=== PATIENT | female | born 1950 | race Caucasian/White ===

== ENCOUNTER → 2024-03-03 14:42 | Outpatient (REF) | payer MEDICARE, OTHER, SELFPAY | LOC: DHCBC HW 14:42 | PROVIDERS: ATTENDING PHYSICIAN Internal Medicine Cardiovascular Disease; FAMILY PHYSICIAN Family Medicine | DX: R01.1 Cardiac murmur, unspecified (principal) | CPT/HCPCS: 93306 ==

== ENCOUNTER → 2024-05-02 12:19 | Outpatient (REF) | payer MEDICARE, OTHER, SELFPAY | LOC: HWWDC 12:19 | PROVIDERS: ATTENDING PHYSICIAN Family Medicine | DX: Z12.31 Encounter for screening mammogram for malignant neoplasm of breast (principal) | CPT/HCPCS: 77063; 77067 ==

== ENCOUNTER → 2024-05-17 07:50 | Outpatient (REF) | payer MEDICARE, OTHER, SELFPAY | LOC: HWRAD 07:50 | PROVIDERS: ATTENDING PHYSICIAN Internal Medicine Endocrinology, Diabetes & Metabolism; FAMILY PHYSICIAN Family Medicine | DX: E04.2 Nontoxic multinodular goiter (principal) | CPT/HCPCS: 76536 ==

== ENCOUNTER → 2024-05-31 09:24 | Outpatient (REF) | payer MEDICARE, OTHER, SELFPAY | LOC: RAD 09:24 | PROVIDERS: ATTENDING PHYSICIAN Surgery Vascular Surgery; FAMILY PHYSICIAN Family Medicine | DX: I65.23 Occlusion and stenosis of bilateral carotid arteries (principal) | CPT/HCPCS: 93880 ==

== ENCOUNTER → 2024-06-13 12:02 | Outpatient (REF) | payer MEDICARE, OTHER, SELFPAY ==
[2024-06-13 15:33] LABS: Blood Urea Nitrogen 16 mg/dl (7-17); Calcium 10.2 mg/dl (8.4-10.2); Carbon Dioxide 32 mmol/L (22-30); Chloride 102 mmol/L (98-107); Glucose 123 mg/dl (70-99); Potassium 4.6 mmol/L (3.5-5.1); Sodium 138 mmol/L (135-145); eGFR > 60.00
== END ==
LOC: HWLAB 12:02
PROVIDERS: ATTENDING PHYSICIAN Surgery Vascular Surgery; FAMILY PHYSICIAN Family Medicine
DX: I65.23 Occlusion and stenosis of bilateral carotid arteries (principal)
CPT/HCPCS: 36415; 80048

== ENCOUNTER → 2024-06-20 08:33 | Outpatient (REF) | payer MEDICARE, OTHER, SELFPAY | LOC: HWRAD 08:33 | PROVIDERS: ATTENDING PHYSICIAN Surgery Vascular Surgery; FAMILY PHYSICIAN Family Medicine | DX: I65.23 Occlusion and stenosis of bilateral carotid arteries (principal) | CPT/HCPCS: 70496; 70498; Q9967 ==

== ENCOUNTER 2024-06-29 06:05 | Inpatient (IN) | payer MEDICARE, OTHER, SELFPAY ==
--- NOTE | 2024-06-28 15:05 | PTCARENOTE ---
Patients last dose of Ozempic 06/23- Dr. Del Toro notified- ok to proceed with procedure
[2024-06-29] VITALS (14 sets, daily range): BP systolic 94–145; BP diastolic 48–93; BMI 34.8
[2024-06-29 07:02] LABS: Hematocrit 40.8 % (37.0-47.0); Hemoglobin 13.9 g/dL (12.0-16.0); Mean Corp Hgb Conc. 34.1 g/dL (33.0-37.0); Mean Corpuscular Hgb 27.8 pg (27.0-31.0); Mean Corpuscular Volume 81.6 fL (81.0-99.0); Mean Platelet Volume 9.5 fL (7.4-10.4); Platelet Count 377 10^3/uL (130-400); Red Cell Dist. Width 15.1 % (11.5-14.5); White Blood Cell Count 13.8 10^3/uL (4.8-10.8)
[2024-06-29] MEDS: PERIDEX 0.12% ORAL RINSE 15 ML PO (07:02)
[2024-06-29] MEDS: BACTROBAN NASAL 1 GRAM NASAL (07:02)
--- NOTE | 2024-06-29 07:03 | W.SUR.PREOP ---
Pre-Operative Surgical Note
-
I have examined this patient prior to the performance of the scheduled procedure.
The patient's condition is unchanged from the time of the current History and
Physical and the patient is able to undergo the scheduled procedure.
[2024-06-29 07:09] LABS: Blood Urea Nitrogen 20 mg/dl (7-17); Calcium 10.2 mg/dl (8.4-10.2); Carbon Dioxide 26 mmol/L (22-30); Chloride 103 mmol/L (98-107); Estimated Creatinine Clearance 61 ml/min; Glucose 180 mg/dl (70-99); Potassium 4.5 mmol/L (3.5-5.1); Sodium 138 mmol/L (135-145); eGFR > 60.00
[2024-06-29 07:12] LABS: INR 0.98
[2024-06-29 07:17] LABS: Glucose - Point of Care 153 mg/dl (70-99)
[2024-06-29 07:28] LABS: APTT 21.5 Sec (23.4-35.0)
--- NOTE | 2024-06-29 09:45 | OR.RPT ---
Operative Report
Operative Report
PROCEDURE DATE: 06/29/2024
Preoperative diagnosis: Symptomatic critical left carotid artery stenosis.
Postoperative diagnosis: Same
Procedure: Left carotid endarterectomy with bovine pericardial patch angioplasty and intraoperative EEG/SSEP monitoring. Placement of intraoperative temporary shunt.
Surgeon: Naseem
Adding Machine Mechanic: SYL Carrillo required for all aspects of procedure including assistance with traction/countertraction, following a suture line, assistance with closure.
Complications: None
Anesthesia: General
Indications for procedure:
Symptomatic left carotid artery critical stenosis (2 episodes of right arm weakness). Risk/benefits/alternatives of revascularization all fully discussed. Patient understood and wished to proceed.
Description of procedure:
Patient was identified brought to the operating room placed on the table in supine position. After the adequate administration of anesthesia and perioperative antibiotics she was prepped and draped in the standard surgical fashion. A standard
preoperative timeout was undertaken and everybody was in agreement the plan. A standard longitudinal incision was made in the left neck that was carried through the skin subcutaneous tissue. She had an enlarged thyroid (known history of
multinodular goiter) and care was taken to make the incision slightly cephalad to that region. Using the electrocautery dissection was carried through the platysma muscle layer and then alongside the anterior medial border of the
sternocleidomastoid muscle. Then using a combination of sharp dissection with the Metzenbaum scissors and electrocautery I dissected along the anterior medial border of the internal jugular vein. The common facial vein branch was ligated between
silk ties and then divided. I then deepened my retraction. The common carotid artery was identified and carefully dissected away from the surrounding structures taking great care to avoid any injury to the structures. A vessel loop was passed
around it which was double looped, but not yet tightened. Note the vagus nerve was clearly visualized and protected from harm's way. I then continued my dissection up the common carotid artery to the bulb staying only on the anterior surface of
the carotid artery. Then I carried the dissection up to the internal carotid artery and then to the distal internal carotid artery. I identified where it was soft and carefully circumferentially dissected the internal carotid artery with minimal
mobilization and passed a vessel loop around it. Note the hypoglossal nerve was not visualized in the field here and felt to be further cephalad. The patient was given an appropriate dose of heparin 9000 units. Next I dissected the anterior
surface of the external carotid artery and superior thyroid branches. These were then carefully circumferentially dissected with minimal mobilization and vessel loops passed around these which were double looped but not yet tightened. After 3
minutes of heparin circulation time and confirmation of optimization of the blood pressure with my anesthesiology colleagues, I clamped the distal internal carotid artery where it was soft. There was no immediate EEG or SSEP changes. After 1
minute of test clamp time there was no changes noted. Therefore at this point, the vessel loops on the external carotid artery and superior thyroid branches were tightened and the common carotid artery was clamped where it was soft proximally. An
arteriotomy was made on the common carotid artery with an 11 blade and extended using a Clark scissor. At this point while trying to extend the arteriotomy, SSEP changes were initially noted. I therefore quickly prepared a shunt. I quickly
extended the arteriotomy onto the mid to distal internal carotid artery. There was significant calcified and mixed plaque resulting in severe stenosis, challenging the ease of extending the arteriotomy. Once I got to clean endpoints proximally on
the common carotid artery and distally on the internal carotid artery in terms of my arteriotomy, I then quickly placed the Arab shunt into the internal carotid artery distally and placed a shunt clamp to hold in place. I allowed to backbleed and
then passed it down into the common carotid artery where a double looped vessel loop was tightened to hold the shunt in place. Of note, during this period in addition to the SSEPs, the EEGs began to dampen as well. However, immediately upon shunt
placement they all began to recover and then relatively quickly resumed to baseline.. A [place] was then used to endarterectomized the plaque. An endarterectomy plane was created, and the plaque was then endarterectomized. Distally I feathered the
plaque out to a nice clean endpoint in the distal internal carotid artery. Next I endarterectomized the intima back to normal intima in the common carotid artery, and the intima was cut flush there. I then grasped the plaque and everted plaque out
of the origin of the external carotid artery. The plaque was then sent off for specimen. The origin of the external carotid artery was carefully visualized and any fine debris were removed with fine forceps. Proximal and distal endpoints were
then carefully inspected. Any fine debris was removed with fine forceps, and the intima was noted to be nicely adherent proximally distally. Next any fine debris were removed throughout the endarterectomy bed with fine forceps. A couple
interrupted 7-0 Prolene tacking sutures were placed to tack the posterior intima at the distal endpoint. I then flushed heparinized saline. I was very satisfied. Then, I used a bovine pericardial patch to sew a patch angioplasty with a running
6-0 Prolene suture. Prior to completing and tying down my suture line, I removed the shunt, allowing the internal and common carotid arteries to backbleed and then reclamping them. I flushed heparinized saline. I quickly completed and tied down
my suture line now. We then restored flow in the common carotid and external carotid arteries. Finally, we released flow in the internal carotid artery. There was excellent pulsatile flow in all 3 vessels. There was an excellent Doppler signal
in the internal carotid artery distal to the patch with a good normal low resistance Doppler signal. There was a good Doppler signal in the external carotid artery as well. A couple 6-0 Prolene [id number] sutures were placed along two
bleeding points along the suture line. Protamine was given to reverse the heparin. Hemostasis was completely achieved. We then irrigated and confirmed full hemostasis. We then closed in layers with 2-0 Vicryl layer to reapproximate the
sternocleidomastoid muscle, followed by 3-0 Vicryl platysma muscle running layer, followed by 4 Monocryl subcuticular stitch. Dermabond was applied. The patient tolerated procedure well. She awoke moving all four extremities to command with tongue
in the midline.
[2024-06-29 10:32] LABS: Blood Urea Nitrogen 17 mg/dl (7-17); Calcium 8.7 mg/dl (8.4-10.2); Carbon Dioxide 24 mmol/L (22-30); Chloride 107 mmol/L (98-107); Estimated Creatinine Clearance 68 ml/min; Glucose 156 mg/dl (70-99); Potassium 4.4 mmol/L (3.5-5.1); Sodium 136 mmol/L (135-145); eGFR > 60.00
[2024-06-29] MEDS: NSS 1000 IV (10:35)
[2024-06-29 10:44] LABS: PT 14.3 Sec (11.4-14.6)
[2024-06-29 10:45] LABS: APTT 29.2 Sec (23.4-35.0)
[2024-06-29 11:50] LABS: Hematocrit 34.8 % (37.0-47.0); Hemoglobin 11.8 g/dL (12.0-16.0); Mean Corp Hgb Conc. 33.9 g/dL (33.0-37.0); Mean Corpuscular Hgb 27.9 pg (27.0-31.0); Mean Corpuscular Volume 82.3 fL (81.0-99.0); Mean Platelet Volume 9.8 fL (7.4-10.4); Platelet Count 289 10^3/uL (130-400); Red Blood Cell Count 4.23 10^6/uL (4.20-5.40); White Blood Cell Count 15.1 10^3/uL (4.8-10.8)
--- NOTE | 2024-06-29 11:55 | CON.INTV ---
Consultation
Consultation Request
Date/Time Consultation Requested: 06/29/24
Date/Time Consultation Performed: 06/29/24
Performing Provider: Alber
Reason for Consultation: ICU
Medical History
-
History of Present Illness:
Patient is a 73 year old F with history of HTN, HLD prior R sided carotid intervention presenting for elective L sided carotid CEA. Outpatient records reviewed with 70-80% stenosis and some accompanying symptoms of UE weakness. She underwent
procedure and is transferred postop to ICU for further management.
Past Medical History
Past Medical History: Other (see list below)
Social History
Tobacco: Non-smoker
Alcohol: None
Drug: None
Family History
Family History: Reviewed & Not Pertinent
Allergies / Home Medications
Allergies
Allergy/AdvReac Type Severity Reaction Status Date / Time
lisinopril Allergy cough Verified 06/28/24 09:00
Home Medications
�Medication �Instructions �Recorded �Confirmed �Last Taken �Type
metformin 850 mg tablet 850 mg PO BID Diabetes 08/26/13 06/29/24 06/28/24 19:00 History
multivitamin 1 tab PO DAILY Supplement 07/22/22 06/29/24 06/28/24 08:00 History
diphenhydramine 25 2 tab PO HS PRN sleep 07/30/22 06/29/24 06/28/24 22:00 History
mg-acetaminophen 500 mg tablet
losartan 100 mg tablet 100 mg PO DAILY Blood Pressure 07/30/22 06/29/24 06/28/24 08:00 History
aspirin 81 mg tablet,delayed 81 mg PO DAILY Blood Clot 06/28/24 06/29/24 06/29/24 05:00 History
release Prevention/Tx
atorvastatin 80 mg tablet 80 mg PO HS High Cholesterol 06/28/24 06/29/24 06/28/24 19:00 History
calcium 1 cap PO DAILY Supplement 06/28/24 06/29/24 06/28/24 08:00 History
carvedilol 12.5 mg tablet 12.5 mg PO BID Blood Pressure 06/28/24 06/29/24 06/28/24 19:00 History
cholecalciferol (vitamin D3) 25 25 mcg PO DAILY Supplement 06/28/24 06/29/24 06/28/24 19:00 History
mcg (1,000 unit) tablet (Vitamin
D3)
icosapent ethyl 1 gram capsule 1 g PO BID High Cholesterol 06/28/24 06/29/24 06/28/24 19:00 History
(Vascepa)
nifedipine 90 mg tablet,extended 90 mg PO DAILY Blood Pressure 06/28/24 06/29/24 06/29/24 05:00 History
release 24 hr
semaglutide 1 mg/dose (4 mg/3 mL) 1 mg SC QWEEK Diabetes 06/28/24 06/28/24 06/23/24 History
subcutaneous pen injector (Ozempic)
Review of Systems
-
History Source: Patient
All other systems: Negative unless noted
Vitals / Labs / Diagnostic Testing
Vital Signs
Temp Pulse Resp BP Pulse Ox
97.5 F 80 14 123/55 97
06/29/24 10:45 06/29/24 10:45 06/29/24 10:45 06/29/24 10:45 06/29/24 10:45
Lab Data
06/29/24 10:02
06/29/24 10:02
Laboratory Results
06/29/24 06/29/24
06:36 10:02
PT 13.0 14.3
INR 0.98 1.10
APTT 21.5 L 29.2
Diagnostic Testing:
Physical Exam
-
HEENT: Normocephalic, Anicteric and Moist Mucous Membranes
Cardiovascular: S1/S2 and Regular Rhythm
Respiratory: Clear and Non-Labored Respirations
GI: Soft, Non Distended and Non Tender
Neurology: Awake, Alert, Oriented, AO x 3 and No Motor Deficits
Skin: Warm, Dry and Good Color
General: Comfortable and Other (NAD)
Assessment
-
Patient is a 73 year old F with history of HTN, HLD prior R sided carotid intervention presenting for elective L sided carotid CEA. Outpatient records reviewed with 70-80% stenosis and some accompanying symptoms of UE weakness. She underwent
procedure and is transferred postop to ICU for further management.
Symptomatic critical left carotid artery stenosis s/p Left carotid endarterectomy with bovine pericardial patch angioplasty 06/29/24
Mild leukocytosis, postop
Mild anemia, postop
Hyperglycemia
Conditions present CONCRETE PAVING MACHINE OPERATOR
Status post TCAR, remote history of right CEA 07/30/22
Hypertension
Hyperlipidemia
Diabetes mellitus
Peripheral vascular disease
Obesity
Plan
Patient is s/p L CEA by vascular surgery service, POD #0
Continue observation following procedure
Follow neurovascular checks per protocol
ASA, betablocker and statin on board
Follow BP monitoring and parameters as set by primary team
Cardiac history noted--HTN, PVD
Monitor on telemetry
Pain control per protocol
RASS goal 0
No prior history of pulmonary disease, nonsmoker
Prior CXR reviewed indicating no acute disease
No prior PFTs for review, denies active complaints
Stable on RA
Encouraged IS
Diet advancement per protocol
Aspiration precautions
GI prophylaxis if indicated for stress ulcer prevention in the critically ill
Creat at baseline, follow UO
Critical I/Os
Void trials
Replete electrolytes as needed
No signs/symptoms suspicious for infectious etiology at this time
Will observe off antibiotics for now
Follow temperatures/CBC
Hb and platelets postoperatively stable
DVT prophylaxis recommended if not contraindicated based on procedural history -- heparin SQ and mechanical SCDs
Encouraged OOB/PT/OT/ambulation once cleared by surgical team
We will follow
Diagnostic Data
Chest X-Ray: 07/27/22- There is no acute cardiopulmonary process. No significant interval change.
CT Scan: H&N 06/20/24- Severe calcific atherosclerotic disease involving the left carotid bulb with greater than 70% narrowing at this level. Atherosclerotic plaque extends into the proximal left ICA with at least 50% intraluminal narrowing involving
a short segment of the proximal ICA. The remainder of the cervical ICA demonstrates no significant atherosclerotic disease and is patent. Patent right carotid stent without evidence of in-stent stenosis. Nonstented segment of the right ICA is patent
without significant atherosclerotic disease. Mild atherosclerotic disease of the intracranial ICAs without significant narrowing. Patent intracranial arteries.
No acute intracranial abnormality. Age-appropriate volume loss. Sequela of chronic small vessel disease. 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
Echo: 03/03/24- Normal left ventricular chamber size with mild concentric remodeling and hyperdynamic left ventricular systolic function. Left ventricular ejection fraction is 70-75%. Stage I diastolic dysfunction suggestive of abnormal relaxation.
Normal right ventricular size and function. Normal atria. No significant valve abnormalities are observed. No evidence of pulmonary hypertension. No significant change since the prior study of 12/29/2021.
PFT's:
Reports and relevant images were personally reviewed.
-----
Critical Care time 52 mins -- The patient is admitted for acute critical illness for the treatment of vital organ failure and/or prevention of further life-threatening conditions. Total care includes time spent in review of history, physical exam,
medications, hemodynamic/ventilator parameters, laboratory data, imaging and discussion with house staff, pharmacy, respiratory therapy, baggage agent, and nursing.
[2024-06-29 11:57] LABS: Glucose - Point of Care 168 mg/dl (70-99)
[2024-06-29] MEDS: NOVOLOG FLEXPEN-LOW RESISTANCE 1 UNITS SC (12:40)
--- NOTE | 2024-06-29 12:57 | PTCARENOTE ---
Pt arrived from PACU approx 1100 to ICU, s/p L CEA. Complete assessment done and documented. Pt oriented x3, JOHNSON bilat, equal strength of exts. +PERRL. Incision with surgi glu intact on L neck. Ice pack to neck inc. R rad js zero'd and + cuff
ruel noted. Pt afeb. HR SR, BP 118/55. NS @ 80 ml/hr infusing. Pt received on 2l nc, o2 sat=97%, lobes clear, diminished at bases bilat. Pt decreased to R/A now, tolerating well, O2 sat=92%. Pt tested with swallowing water sips, and tolerated well,
no coughing noted. Pt expressed that she is being seen by Dr Lopez for thyroid issues. Diet ordered by Jerson Carrillo. Pt's and son to room and updated.
[2024-06-29] MEDS: NOVOLOG FLEXPEN-LOW RESISTANCE 2 UNITS SC (17:55)
[2024-06-29 18:03] LABS: Glucose - Point of Care 245 mg/dl (70-99)
[2024-06-29] MEDS: COREG 12.5 MG PO (20:52)
[2024-06-29] MEDS: HEPARIN 5000 UNITS SC (20:52)
[2024-06-29] MEDS: LIPITOR 80 MG PO (21:48)
--- NOTE | 2024-06-29 22:03 | PTCARENOTE ---
Received pt handoff at bedside. AOx3, JOHNSON bilaterally, equal strength in all extremities. + PERRLA. NSR w/ 1st degree HB, + pulses. Right radial Ying zero'd and correlated with cuff. 95% on RA clear but diminished at bases. Hypoactive bowel sounds
in all 4 quadrants. Pt using bedpan, urine clear yellow. Dermabond on left neck incision intact. Safe environment maintained.
[2024-06-29 22:11] LABS: Glucose - Point of Care 176 mg/dl (70-99)
[2024-06-29] MEDS: NOVOLOG FLEXPEN 1 UNITS SC (22:16)
--- NOTE | 2024-06-29 23:48 | PTCARENOTE ---
No changes in pt's status, neuro checks remaining the same, continuing to monitor see worklist.
[2024-06-30] VITALS (7 sets, daily range): BP systolic 138–185; BP diastolic 54–77; BMI 35.5
[2024-06-30 03:37] LABS: Hematocrit 34.9 % (37.0-47.0); Hemoglobin 11.9 g/dL (12.0-16.0); Mean Corp Hgb Conc. 34.1 g/dL (33.0-37.0); Mean Corpuscular Hgb 27.5 pg (27.0-31.0); Mean Corpuscular Volume 80.8 fL (81.0-99.0); Mean Platelet Volume 9.6 fL (7.4-10.4); Platelet Count 288 10^3/uL (130-400); Red Blood Cell Count 4.32 10^6/uL (4.20-5.40); Red Cell Dist. Width 15.1 % (11.5-14.5); White Blood Cell Count 14.7 10^3/uL (4.8-10.8)
[2024-06-30 03:46] LABS: APTT 26.2 Sec (23.4-35.0); INR 1.02; PT 13.4 Sec (11.4-14.6)
[2024-06-30 04:01] LABS: Blood Urea Nitrogen 16 mg/dl (7-17); Calcium 9.6 mg/dl (8.4-10.2); Carbon Dioxide 25 mmol/L (22-30); Chloride 109 mmol/L (98-107); Estimated Creatinine Clearance 78 ml/min; Glucose 145 mg/dl (70-99); Magnesium 1.9 mg/dl (1.6-2.3); Potassium 4.3 mmol/L (3.5-5.1); Sodium 139 mmol/L (135-145); eGFR > 60.00
[2024-06-30] MEDS: NITROGLYCERIN PREMIX 250 IV (04:07)
[2024-06-30 04:40] LABS: Hepatitis C Antibody Negative (Negative)
--- NOTE | 2024-06-30 07:22 | W.PN.VS ---
Addendum entered and electronically signed by Enoc Gusman MD 06/30/24 08:05:
Seen and examined this morning with SYL Carrillo. Agree with findings as noted below. No significant complaints. Left neck incision is clean dry and intact. No hematoma. Neurologically moves all extremities well. Tongue midline. Plan/as discussed
and noted below.
Original Note:
Today's Communication / Plan
-
Patient seen and examined at bedside with Dr. Enoc Gusman, below plan reviewed with attending
Assessment/Plan
-
Assessment: 73-year-old female POD #1 left carotid endarterectomy
Plan:
Will give home medication p.o. antihypertensives and wean nitro infusion, can discontinue arterial line once nitro drip discontinued
OOB to chair with progression to ambulation as tolerated
Continue diet
Continue antiplatelet medication of aspirin 81 mg p.o. daily and statin therapy
Likely discharge later today, follow-up placed in discharge instructions
Subjective Data
-
Date of Service: June 30, 2024
Patient seen and examined bedside, offers no complaints. Denies headache, unilateral weakness, vision changes, dysarthria, dysphagia, aphasia, nausea, vomiting, fever, and chills. Reports well-managed postoperative pain. Reports eagerness for
discharge to home when deemed stable.
Objective Data
-
Vital Signs
Temp Pulse Resp BP Pulse Ox
98.5 F 85 13 185/77 90
06/30/24 00:00 06/30/24 05:15 06/30/24 05:15 06/30/24 04:00 06/30/24 05:15
Intake and Output
06/29/24 06/30/24 07/01/24
06:59 06:59 06:59
Intake Total 1136.5 / 1136.5
Output Total 600 / 600
Balance 536.5 / 536.5
Intake:
Oral fluids 345 / 345
IV fluids (Total) 791.5 / 791.5
Nitro 1.5 / 1.5
Normosal 150 / 150
Nss 1,000 ml @ 80 mls/hr IV . 640 / 640
[id number] [facility] Rx#:[id number]
Output:
Urine, Voided 600 / 600
Other:
Number of approximated SMALL 1
amounts of urine
Number of approximated MODERATE 1
amounts of urine
Lab Results
06/30/24 03:26
06/30/24 03:26
Calcium 9.6 mg/dl (8.4-10.2) 06/30/24 03:26
Magnesium 1.9 mg/dl (1.6-2.3) 06/30/24 03:26
Physical Exam
-
General: No apparent distress, resting comfortably in bed
Neuro: AAOx3, moves BL UE and LE to command and spontaneously
HEENT: Normocephalic atraumatic, tongue midline, face symmetrical
Cardiac: No JVD, RRR
Respiratory: No dyspnea on room air
GI: Non-distended
Skin: Left neck surgical incision CDI, no hematoma
--- NOTE | 2024-06-30 07:24 | W.PN.INTV ---
Addendum entered and electronically signed by Kamila Campo, DO 06/30/24 13:45:
Mild postop anemia, ONLY
Original Note:
Today's Communication / Plan
Recommendations
Doing well, tolerating meals
Sitting in chair, no new complaints
Discharge planning per team
Assessment
-
Patient is a 73 year old F with history of HTN, HLD prior R sided carotid intervention presenting for elective L sided carotid CEA. Outpatient records reviewed with 70-80% stenosis and some accompanying symptoms of UE weakness. She underwent
procedure and is transferred postop to ICU for further management.
Symptomatic critical left carotid artery stenosis s/p Left carotid endarterectomy with bovine pericardial patch angioplasty 06/29/24
Mild leukocytosis, postop
Mild anemia, postop
Hyperglycemia
Conditions present ANIMAL CARE SUPERVISOR
Status post TCAR, remote history of right CEA 07/30/22
Hypertension
Hyperlipidemia
Diabetes mellitus
Peripheral vascular disease
Obesity
Plan
Patient is s/p L CEA by vascular surgery service, POD #1
Continue observation following procedure
Follow neurovascular checks per protocol
ASA, betablocker and statin on board
Follow BP monitoring and parameters as set by primary team
Cardiac history noted--HTN, PVD
Monitor on telemetry
Pain control per protocol
RASS goal 0
No prior history of pulmonary disease, nonsmoker
Prior CXR reviewed indicating no acute disease
No prior PFTs for review, denies active complaints
Stable on RA
Encouraged IS
Diet advancement per protocol
Aspiration precautions
GI prophylaxis if indicated for stress ulcer prevention in the critically ill
Creat at baseline, follow UO
Critical I/Os
Void trials
Replete electrolytes as needed
No signs/symptoms suspicious for infectious etiology at this time
Will observe off antibiotics for now
Follow temperatures/CBC
Hb and platelets postoperatively stable
DVT prophylaxis recommended if not contraindicated based on procedural history -- heparin SQ and mechanical SCDs
Encouraged OOB/PT/OT/ambulation once cleared by surgical team
Discharge planning per team
Diagnostic Data
Chest X-Ray: 07/27/22- There is no acute cardiopulmonary process. No significant interval change.
CT Scan: H&N 06/20/24- Severe calcific atherosclerotic disease involving the left carotid bulb with greater than 70% narrowing at this level. Atherosclerotic plaque extends into the proximal left ICA with at least 50% intraluminal narrowing involving
a short segment of the proximal ICA. The remainder of the cervical ICA demonstrates no significant atherosclerotic disease and is patent. Patent right carotid stent without evidence of in-stent stenosis. Nonstented segment of the right ICA is patent
without significant atherosclerotic disease. Mild atherosclerotic disease of the intracranial ICAs without significant narrowing. Patent intracranial arteries.
No acute intracranial abnormality. Age-appropriate volume loss. Sequela of chronic small vessel disease. 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
Echo: 03/03/24- Normal left ventricular chamber size with mild concentric remodeling and hyperdynamic left ventricular systolic function. Left ventricular ejection fraction is 70-75%. Stage I diastolic dysfunction suggestive of abnormal relaxation.
Normal right ventricular size and function. Normal atria. No significant valve abnormalities are observed. No evidence of pulmonary hypertension. No significant change since the prior study of 12/29/2021.
PFT's:
Reports and relevant images were personally reviewed.
-----
Critical Care time 32 mins -- The patient is admitted for acute critical illness for the treatment of vital organ failure and/or prevention of further life-threatening conditions. Total care includes time spent in review of history, physical exam,
medications, hemodynamic/ventilator parameters, laboratory data, imaging and discussion with house staff, pharmacy, respiratory therapy, residential mortgage underwriter, and nursing.
Subjective Dataa
Subjective Data
Date of Service:
Date of Service: June 30, 2024
Chief Complaint: Calciminer Follow Up
Subjective:
no events ON
tolerating meals
Objective Data
Data Reviewed
Vital Signs / I&O / Oxygen:
Vital Signs
Temp Pulse Resp BP Pulse Ox
98.5 F 85 13 185/77 90
06/30/24 00:00 06/30/24 05:15 06/30/24 05:15 06/30/24 04:00 06/30/24 05:15
Intake and Output
06/29/24 06/30/24 07/01/24
06:59 06:59 06:59
Intake Total 1136.5 / 1136.5
Output Total 600 / 600
Balance 536.5 / 536.5
SaO2 90
Nasal Cannula flow liters per 2
minute
Physical Exam
General: Comfortable and Other (NAD)
HEENT: Normocephalic, Anicteric and Moist Mucous Membranes
Cardiovascular: S1-S2 and Regular Rhythm
Respiratory: Clear and Non-Labored Respirations
GI: Soft, Non Distended and Non Tender
Neurology: Awake, Alert, Oriented, AO x 3 and No Motor Deficits
Skin: Warm, Dry and Good Color
Labs/Micro/Reports
Lab Data
06/30/24 03:26
06/30/24 03:26
Laboratory Results
06/29/24 06/29/24 06/30/24
06:36 10:02 03:26
PT 13.0 14.3 13.4
INR 0.98 1.10 1.02
APTT 21.5 L 29.2 26.2
[2024-06-30] MEDS: VITAMIN D3 (cholecalciferol) 25 MCG PO (07:49)
[2024-06-30] MEDS: OSCAL CAL 500 500 MG PO (07:49)
[2024-06-30] MEDS: COREG 12.5 MG PO (07:49)
[2024-06-30] MEDS: ASPIR LOW (ENTERIC COATED) 81 MG PO (07:49)
[2024-06-30] MEDS: PROCARDIA XL (EXTENDED RELEASE) 90 MG PO (07:49)
[2024-06-30] MEDS: COZAAR 100 MG PO (07:49)
[2024-06-30] MEDS: THERAGRAN 1 TABLET PO (07:49)
[2024-06-30] MEDS: HEPARIN 5000 UNITS SC (07:50)
[2024-06-30 07:54] LABS: Glucose - Point of Care 146 mg/dl (70-99)
--- NOTE | 2024-06-30 08:40 | PTCARENOTE ---
pt aaox3. states no pain or sob. left neck site glue c/d/i. neuro checks done as ordered. no deficits noted. ntg gtt running titrated down as ordered. js in place. pt eating breakfast.
[2024-06-30] MEDS: TYLENOL 650 MG PO (09:58)
--- NOTE | 2024-06-30 10:00 | PTCARENOTE ---
ntg gtt off, js removed and pt now oob in chair. tylenol given for mild pain in left neck.
--- NOTE | 2024-06-30 11:06 | PTCARENOTE ---
pt ambulated in hallway without difficulty. no complaints of dizziness.
--- NOTE | 2024-06-30 11:12 | CM ---
CM following re: discharge planning.
Reviewed pt's chart, met with pt.
Pt is a 73 year of female, admitted with primary dx of POD #1 left carotid endarterectomy.
Pt reports she lives with and a son in a rancher style house, no steps. Pt described herself as independent in all areas [employer]. No DME, VN or SNF history.
Per Vascular Surgery, pt will be discharge later today. Pt is aware, expressed her agreement with discharge. IMM reviewed, placed on chart, pt has a copy.
PCP: Susana Quintero
Pharmacy: [facility]
D.C plan: home with no after care VN needs. Spouse to transport.
--- NOTE | 2024-06-30 11:40 | W.DCSUMMARY ---
Discharge Summary
Discharge Data
Date of Admission: 06/29/24
Date of Discharge: 06/30/24
-
Pending Results: No
Hospital Course
Attending: Enoc Gusman MD
Consultants: Pulmonary medicine
Allergies: lisinopril
Procedure with date: Left carotid endarterectomy with bovine pericardial patch angioplasty and intraoperative EEG/SSEP monitoring. Placement of intraoperative temporary shunt. Dr. Enoc Gusman on 06/29/2024
History of present illness: The patient is an 73-year-old female with multiple medical conditions including: carotid stenosis, hyperlipidemia, hypertension, diabetes, CVA, and osteopenia. Patient presented on 06/29/2024 for scheduled procedure with
Dr. Gusman. Patient presented at baseline health with no reports of recent illness or trauma.
Hospital Course: Briefly, the patient underwent scheduled left carotid endarterectomy without complications, and recovered in PACU. Following recovery phase one and two patient was transferred to intensive care unit per protocol for continued
hemodynamic monitoring. Adjunct Professor Of [employer] consulted to aid in medical management from a critical care perspective. POD #1 (06/30/2024) Patient neurologically intact, face symmetrical, and tolerating PO diet. Surgical left neck clean, dry, and intact with
suture line well approximated and soft. No evidence of hematoma. Patient with noted hypertension earlier that was managed with nitro infusion, infusion was successfully weaned off following administration of her home antihypertensive medications.
Arterial line was discontinued. Patient able to ambulate without difficulty or incident. Patient stable for discharge to home.
Prescriptions and follow up appointment are included in the DC summary control room technician note. All instructions were given to the patient in both written and verbal form and the patient expressed understanding.
Discharge Plan
-
Patient Disposition: Home (Routine Discharge)
Discharge Diagnosis/Procedures: Left carotid endarterectomy
Condition: Good
Diet: As tolerated
Activity: No strenuous activity
Driving Restrictions: Not until seen by your Dr
Bathing Restrictions: OK to Shower
Activity Restrictions/Additional Instructions:
If you experience severe constant headache, weakness to an arm or leg, change in vision, trouble speaking or any stroke-like symptom, call 911 immediately
If you experience swelling, increased bruising, drainage from neck site, or fever, please call the office
Stand Alone Forms: DC Instr - Vascular OR
Referrals:
Susana Quintero DO [Family Provider] -
Pennie Gómez CRNP [Specified Professional Personl] - 07/14/24 8:45 am
Prescriptions:
Continued
metformin 850 MG tablet
850 mg PO BID
multivitamin Tablet
1 tab PO DAILY
diphenhydramine-acetaminophen 25-500 mg Tablet
2 tab PO HS PRN (Reason: sleep)
losartan 100 mg Tablet
100 mg PO DAILY
atorvastatin 80 mg Tablet
80 mg PO HS
carvedilol 12.5 mg Tablet
12.5 mg PO BID
aspirin 81 mg Tablet,Delayed Release (Dr/Ec)
81 mg PO DAILY
nifedipine 90 mg Tablet Extended Release 24hr
90 mg PO DAILY
cholecalciferol (vitamin D3) [Vitamin D3] 25 mcg (1,000 unit) Tablet
25 mcg PO DAILY
icosapent ethyl [Vascepa] 1 gram Capsule
1 g PO BID
Ozempic 1 mg/dose (4 mg/3 mL) Pen Injector
1 mg SC QWEEK
calcium
1 cap PO DAILY
Discharge Orders:
Discharge Patient (As Directed); Ordered 06/30/24
Ordered By: Jeanette Carrillo
Discharge Date and Time
Print Language: GREEK
[2024-06-30 12:06] LABS: Glucose - Point of Care 179 mg/dl (70-99)
--- NOTE | 2024-06-30 13:26 | PN.CDI ---
CDI
- -
CDI:
Physician Documentation Request
Admit Date: 06/29/24 06:05
Dear Doctor Alber,
Please review the following and provide your response in the progress notes.
Clinical Indicators:
Pt admitted with left carotid artery stenosis s/p Carotid endarterectomy 06/29
Documented per shingle inspector consult and progress note 06/30, ' Mild anemia, postop..'
06/29/24 06/29/24 06/30/24
06:36 10:02 03:26
Hgb 13.9 11.8 L 11.9 L
Hct 40.8 34.8 L 34.9 L
Based on the above, could you clarify, in your progress note, which of the following is the most likely type of anemia you are evaluating, monitoring and/or treating?
Acute blood loss anemia
Mild anemia, postop only
Other
Use of terms such as suspected, likely, concern for, or probable (associated with a specific diagnosis that is being evaluated, monitored, or treated as if it exists) are acceptable and can be coded in the inpatient setting, when documented at the
time of discharge.
Thank you,
Lilian Johnson RN
CDI Specialist
[place] [facility]
Please use your independent medical judgment in providing your response.
== END 2024-06-30 12:25 | disposition home or self-care (01) | DRG 39 ==
LOC: ICU 06:05
PROVIDERS: Nurse Practitioner; ADMITTING PHYSICIAN Surgery Vascular Surgery; CONSULT PHYSICIAN Internal Medicine; FAMILY PHYSICIAN Family Medicine
PROC: 03CL0ZZ Extirpation of Matter from Left Internal Carotid Artery, Open Approach (ICD-10-PCS; 2024-06-29)
PROC: 03UL0KZ Supplement Left Internal Carotid Artery with Nonautologous Tissue Substitute, Open Approach (ICD-10-PCS; 2024-06-29)
DX: I65.23 Occlusion and stenosis of bilateral carotid arteries (principal); I10 Essential (primary) hypertension; E11.65 Type 2 diabetes mellitus with hyperglycemia; E78.5 Hyperlipidemia, unspecified; D64.9 Anemia, unspecified; D72.829 Elevated white blood cell count, unspecified; E66.9 Obesity, unspecified; M85.80 Other specified disorders of bone density and structure, unspecified site; Z79.82 Long term (current) use of aspirin; Z79.02 Long term (current) use of antithrombotics/antiplatelets; Z79.84 Long term (current) use of oral hypoglycemic drugs; Z86.73 Personal history of transient ischemic attack (TIA), and cerebral infarction without residual deficits; Z82.49 Family history of ischemic heart disease and other diseases of the circulatory system; Z87.891 Personal history of nicotine dependence; Z68.35 Body mass index [BMI] 35.0-35.9, adult
CPT/HCPCS: 88304; 88311; 35301; 80048; 82962; 83735; 85027; 85610; 85730; 86803; 86850; 86900; 86901; 93005; 95938; 95941; 95955

== ENCOUNTER 2024-07-14 06:33 | Day surgery (SDC) | payer MEDICARE, OTHER, SELFPAY ==
[2024-07-14 14:00] VITALS: BP 178/76
[2024-07-14 14:09] LABS: Glucose - Point of Care 121 mg/dl (70-99)
[2024-07-14 14:12] VITALS: BMI 34.6
[2024-07-14 14:21] VITALS: BMI 34.6
[2024-07-14 16:10] VITALS: BP 124/67
[2024-07-14 16:15] VITALS: BP 135/81
[2024-07-14 16:30] VITALS: BP 114/61
[2024-07-14 16:40] VITALS: BP 141/76
== END 2024-07-14 16:55 | disposition home or self-care (01) ==
LOC: SDS 06:33
PROVIDERS: ATTENDING PHYSICIAN Internal Medicine Gastroenterology
DX: K22.2 Esophageal obstruction (principal); K31.89 Other diseases of stomach and duodenum; Q39.9 Congenital malformation of esophagus, unspecified; R13.10 Dysphagia, unspecified
CPT/HCPCS: 43239; 88305; 82962; 88342

== ENCOUNTER → 2024-07-25 09:09 | Outpatient (REF) | payer MEDICARE, OTHER, SELFPAY | LOC: RAD 09:09 | PROVIDERS: ATTENDING PHYSICIAN Internal Medicine Gastroenterology; FAMILY PHYSICIAN Family Medicine | DX: R13.19 Other dysphagia (principal) | CPT/HCPCS: 74221 ==

== ENCOUNTER → 2024-08-16 09:22 | Outpatient (REF) | payer MEDICARE, OTHER, SELFPAY | LOC: DHVS 09:22 | PROVIDERS: ATTENDING PHYSICIAN Registered Nurse; FAMILY PHYSICIAN Family Medicine; REFERRING PHYSICIAN Surgery Vascular Surgery | DX: I65.23 Occlusion and stenosis of bilateral carotid arteries (principal) | CPT/HCPCS: 93880 ==

== ENCOUNTER → 2024-10-07 09:54 | Outpatient (REF) | payer MEDICARE, OTHER, SELFPAY | LOC: MRI 3T 09:54 | PROVIDERS: ATTENDING PHYSICIAN Physical Medicine & Rehabilitation; FAMILY PHYSICIAN Family Medicine | DX: M48.062 Spinal stenosis, lumbar region with neurogenic claudication (principal) | CPT/HCPCS: 72148 ==

== ENCOUNTER → 2025-01-08 09:29 | Outpatient (REF) | payer MEDICARE, OTHER, SELFPAY ==
[2025-01-08 11:18] LABS: % Basophils 0.5 % (0-2); % Eosinophils 1.5 % (0-6); % Immature Granulocytes 0.4 % (0-0.5); % Lymphocytes 20.7 % (20.5-51.1); % Monocytes 6.4 % (1.7-9.3); % Neutrophils 70.5 % (42.2-75.2); Absolute Basophils 0.1 10^3/uL (0-0.2); Absolute Eosinophils 0.1 10^3/uL (0-0.7); Absolute Monocytes 0.6 10^3/uL (0.1-0.6); Absolute Neutrophils 6.8 10^3/uL (1.4-6.5); Hematocrit 41.2 % (37.0-47.0); Hemoglobin 13.6 g/dL (12.0-16.0); Mean Corpuscular Hgb 27.4 pg (27.0-31.0); Mean Corpuscular Volume 83.1 fL (81.0-99.0); Mean Platelet Volume 9.5 fL (7.4-10.4); Nucleated Red Blood Cells % 0 %; Platelet Count 340 10^3/uL (130-400); Red Blood Cell Count 4.96 10^6/uL (4.20-5.40); Red Cell Dist. Width 16.3 % (11.5-14.5); White Blood Cell Count 9.6 10^3/uL (4.8-10.8)
[2025-01-08 11:41] LABS: Blood Urea Nitrogen 20 mg/dl (7-17); Calcium 10.1 mg/dl (8.4-10.2); Carbon Dioxide 28 mmol/L (22-30); Chloride 100 mmol/L (98-107); Glucose 145 mg/dl (70-99); Potassium 4.7 mmol/L (3.5-5.1); Sodium 139 mmol/L (135-145); eGFR > 60.00
== END ==
LOC: HWLAB 09:29
PROVIDERS: ATTENDING PHYSICIAN Physical Medicine & Rehabilitation; FAMILY PHYSICIAN Family Medicine
DX: Z01.818 Encounter for other preprocedural examination (principal)
CPT/HCPCS: 36415; 80048; 85025; 93005

== ENCOUNTER → 2025-02-13 12:50 | Outpatient (REF) | payer MEDICARE, OTHER, SELFPAY | LOC: HWRCS 12:50 | PROVIDERS: ATTENDING PHYSICIAN Internal Medicine Cardiovascular Disease; FAMILY PHYSICIAN Family Medicine | DX: I10 Essential (primary) hypertension (principal); Z86.73 Personal history of transient ischemic attack (TIA), and cerebral infarction without residual deficits; R94.31 Abnormal electrocardiogram [ECG] [EKG]; R42 Dizziness and giddiness | CPT/HCPCS: 93306 ==

== ENCOUNTER → 2025-02-27 14:14 | Outpatient (REF) | payer MEDICARE, OTHER, SELFPAY | LOC: RAD 14:14 | PROVIDERS: ATTENDING PHYSICIAN Surgery Vascular Surgery; FAMILY PHYSICIAN Family Medicine | DX: I65.23 Occlusion and stenosis of bilateral carotid arteries (principal) | CPT/HCPCS: 93880 ==

== ENCOUNTER → 2025-03-19 10:07 | Outpatient (REF) | payer MEDICARE, OTHER, SELFPAY | LOC: HWRAD 10:07 | PROVIDERS: ATTENDING PHYSICIAN Physical Medicine & Rehabilitation; FAMILY PHYSICIAN Family Medicine | DX: M25.551 Pain in right hip (principal) | CPT/HCPCS: 73502 ==

== ENCOUNTER → 2025-05-04 10:28 | Outpatient (REF) | payer MEDICARE, OTHER, SELFPAY | LOC: HWRAD 10:28 | PROVIDERS: ATTENDING PHYSICIAN Family Medicine | DX: M81.0 Age-related osteoporosis without current pathological fracture (principal); Z12.31 Encounter for screening mammogram for malignant neoplasm of breast | CPT/HCPCS: 77063; 77067; 77080 ==

== ENCOUNTER → 2025-06-08 07:15 | Outpatient (REF) | payer MEDICARE, OTHER, SELFPAY ==
[2025-06-08 09:34] LABS: ALT (SGPT) 33 U/L (0-35); AST (SGOT) 29 U/L (14-36); Albumin 3.8 g/dl (3.5-5.0); Alkaline Phosphatase 99 U/L (38-126); Blood Urea Nitrogen 19 mg/dl (7-17); Calcium 9.1 mg/dl (8.4-10.2); Carbon Dioxide 27 mmol/L (22-30); Chloride 106 mmol/L (98-107); Glucose 154 mg/dl (70-99); Iron 40 ug/dl (37-170); Potassium 4.4 mmol/L (3.5-5.1); Sodium 140 mmol/L (135-145); Total Protein 5.8 g/dl (6.3-8.2); eGFR > 60.00
[2025-06-08 09:41] LABS: Ferritin 11.3 ng/ml (11.1-264.0)
[2025-06-08 09:44] LABS: Total Iron Binding Capacity 381 ug/dl (265-497)
[2025-06-08 10:38] LABS: Hepatitis B Surface Antigen Negative (Negative)
[2025-06-08 10:55] LABS: Hepatitis C Antibody Negative (Negative)
[2025-06-10 00:11] LABS: Gliadin Peptide (DGP) Ab, IgA <0.72 FLU (0.00-4.99); Gliadin Peptide (DGP) Ab, IgG <0.56 FLU (0.00-4.99)
[2025-06-10 03:59] LABS: Mitochondrial M2 Ab, IgG 58.7 Units (0.0-24.9)
[2025-06-10 10:31] LABS: ANA, IgG Reflex to HEp-2 None Detected (None Detected)
== END ==
LOC: HWLAB 07:15
PROVIDERS: ATTENDING PHYSICIAN Internal Medicine Gastroenterology; FAMILY PHYSICIAN Family Medicine
DX: R79.89 Other specified abnormal findings of blood chemistry (principal)
CPT/HCPCS: 36415; 80053; 82103; 82104; 82390; 82728; 82784; 83516; 83540; 83550; 86015; 86038; 86231; 86258; 86381; 86706; 86803; 87340

== ENCOUNTER → 2025-06-21 09:27 | Outpatient (REF) | payer MEDICARE, OTHER, SELFPAY | LOC: RST 09:27 | PROVIDERS: ATTENDING PHYSICIAN Internal Medicine Gastroenterology; FAMILY PHYSICIAN Family Medicine | DX: R13.19 Other dysphagia (principal); R79.89 Other specified abnormal findings of blood chemistry | CPT/HCPCS: 74230; 76700; 92611 ==

== ENCOUNTER 2025-08-14 06:22 | Day surgery (SDC) | payer MEDICARE, OTHER, SELFPAY ==
[2025-08-14 10:36] LABS: Glucose - Point of Care 144 mg/dl (70-99)
== END 2025-08-14 12:41 | disposition home or self-care (01) ==
LOC: GI 06:22
PROVIDERS: ATTENDING PHYSICIAN Internal Medicine Gastroenterology; FAMILY PHYSICIAN Family Medicine
DX: Z12.11 Encounter for screening for malignant neoplasm of colon (principal); K57.30 Diverticulosis of large intestine without perforation or abscess without bleeding; D12.8 Benign neoplasm of rectum; K62.1 Rectal polyp
CPT/HCPCS: 45380; 82962; 88305

== ENCOUNTER → 2025-09-03 09:25 | Outpatient (REF) | payer MEDICARE, OTHER, SELFPAY | LOC: RAD 09:25 | PROVIDERS: ATTENDING PHYSICIAN Physician Assistant; FAMILY PHYSICIAN Family Medicine | DX: I65.23 Occlusion and stenosis of bilateral carotid arteries (principal) | CPT/HCPCS: 93880 ==

== ENCOUNTER → 2025-09-05 09:23 | Outpatient (REF) | payer MEDICARE, OTHER, SELFPAY ==
[2025-09-05 12:33] LABS: ALT (SGPT) 31 U/L (0-35); AST (SGOT) 28 U/L (14-36); Albumin 3.7 g/dl (3.5-5.0); Alkaline Phosphatase 121 U/L (38-126); Blood Urea Nitrogen 16 mg/dl (7-17); Calcium 9.6 mg/dl (8.4-10.2); Carbon Dioxide 31 mmol/L (22-30); Chloride 104 mmol/L (98-107); Glucose 148 mg/dl (70-99); Potassium 4.5 mmol/L (3.5-5.1); Sodium 137 mmol/L (135-145); Total Protein 6.2 g/dl (6.3-8.2); eGFR > 60.00
== END ==
LOC: HWLAB 09:23
PROVIDERS: ATTENDING PHYSICIAN Family Medicine
DX: R79.89 Other specified abnormal findings of blood chemistry (principal)
CPT/HCPCS: 36415; 80053

== ENCOUNTER → 2025-11-13 08:53 | Outpatient (REF) | payer MEDICARE, OTHER, SELFPAY ==
[2025-11-13 18:36] LABS: AFP Male/Tumor Marker 2.65 ng/ml
== END ==
LOC: HWLAB 08:53
PROVIDERS: ATTENDING PHYSICIAN Internal Medicine Transplant Hepatology; FAMILY PHYSICIAN Family Medicine
DX: K73.9 Chronic hepatitis, unspecified (principal); K74.3 Primary biliary cirrhosis
CPT/HCPCS: 36415; 82105; 82784; 83525; 84155; 84165; 86706